=== PATIENT | male | born 1985 | race Caucasian/White ===

== ENCOUNTER → 2016-09-26 | Outpatient (CLI) | payer OTHER ==
[2016-09-26 10:51] LABS: HEMATOCRIT 40.7 % (42-52); MEAN CELL VOLUME 73.5 fL (80-100); MEAN CORPUSCULAR HEMOGLOBIN 24.4 pg (25-34); MEAN CORPUSCULAR HGB CONC 33.2 g/dl (32-36); MEAN PLATELET VOLUME 11.4 fL (7.4-10.4); PLATELET COUNT 217 K/uL (130-400); RED BLOOD COUNT 5.54 M/uL (4.7-6.1); WHITE BLOOD COUNT 8.36 K/uL (4.8-10.8)
[2016-09-26 11:15] LABS: ALT/SGPT 34 U/L (12-78); AST/SGOT 18 U/L (15-37); BLOOD UREA NITROGEN 9 mg/dl (7-18); BUN/CREATININE RATIO 9.2 (10-20); CALCIUM 8.8 mg/dl (8.5-10.1); CARBON DIOXIDE 32 mmol/L (21-32); CHLORIDE 103 mmol/L (98-107); GLUCOSE 102 mg/dl (70-99); POTASSIUM 3.7 mmol/L (3.5-5.1); SODIUM 140 mmol/L (136-145)
[2016-09-26 11:20] LABS: ALKALINE PHOSPHATASE 94 U/L (45-117); CHOLESTEROL 134 mg/dl (0-200); CHOLESTEROL/HDL RATIO 4.5; FERRITIN 7.9 ng/ml (8.0-388.0); HDL CHOLESTEROL 30 mg/dl; LDL CHOLESTEROL CALCULATED 67 mg/dl; TRIGLYCERIDES 186 mg/dl (0-150); VERY LOW DENSITY LIPOPROT CALC 37 mg/dl
[2016-09-26 11:25] LABS: COMPLETE YES; MICROCYTOSIS PRESENT
[2016-09-26 11:25] LABS: RATIO 7.3 mcg/mg (0-30.0)
[2016-09-26 11:31] LABS: BASO ABS # 0.07 K/uL (0-0.2); BASOPHIL % 0.9 % (0-2); EOSINOPHIL % 3.5 %; LYMPH ABS # 2.05 K/uL (1.2-3.4); LYMPHOCYTE % 24.6 %; VARIANT LYM ABS # 1.69 K/uL; VARIANT LYMPHOCYTE % 20.2 %
== END | disposition home or self-care (01) ==
LOC: C.LAB 10:15
PROVIDERS: ATTEND Nurse Practitioner Family
DX: I10 Essential (primary) hypertension (principal); E53.8 Deficiency of other specified B group vitamins; E78.5 Hyperlipidemia, unspecified; E61.1 Iron deficiency